=== PATIENT | female | born 1970 | race Caucasian/White ===

== ENCOUNTER → 2023-09-12 | Outpatient (CLI) | payer OTHER ==
[2023-09-12 14:09] LABS: Bun/Creatinine Ratio 14.1 (12.0-20.0); Calcium, Blood 9.7 mg/dL (8.5-10.1); Creatinine, Blood 0.92 mg/dL (0.40-1.00); Potassium, Blood 3.6 mmol/L (3.5-5.5)
[2023-09-12 14:58] LABS: International Normalized Ratio 0.93; Prothrombin Time Results 9.8 Sec (9.7-11.5)
== END ==
LOC: LAB 14:00 → LAB SHORT 14:00
PROVIDERS: Family Medicine
DX: Z51.81 Encounter for therapeutic drug level monitoring (principal); Z79.01 Long term (current) use of anticoagulants
CPT/HCPCS: 80048; 85610

== ENCOUNTER 2024-05-07 17:22 | Emergency (ER) | payer OTHER ==
[~2024-05-07] VITALS: Ht 167.6 cm; Wt 110.2 kg
[~2024-05-07 17:22] MED LIST: ALBU2.5V5; Bentyl10 MG PO; CARAFATE1 GM PO; CEPH500 PO; Cyclobenzaprine5 MG; DOXY100 PO; METO25ER PO; MONT10T; NITR.4SL SL; ONDA4 PO; POTCHL20ER PO; Prinivil10 MG PO; SERT20L PO; WARF10 PO; WARF7.5 PO
[2024-05-07 18:18] LABS: Source, Urine Clean Catch
[2024-05-07 18:21] LABS: BASOPHILS ABSOLUTE AUTO 0.04 K/mm3 (0.00-0.23); BASOPHILS PERCENT AUTO 0 % (0-2); EOSINOPHILS ABSOLUTE AUTO 0.27 K/mm3 (0.00-0.68); EOSINOPHILS PERCENT AUTO 2 % (0-6); Hematocrit 45.2 % (33.0-51.0); Hemoglobin 15.4 g/dL (11.5-16.0); IMMATURE GRAN ABSOLUTE AUTO 0.06 K/mm3 (0.00-0.10); IMMATURE GRAN PERCENT AUTO 1 % (0-1); LYMPHOCYTES ABSOLUTE AUTO 2.24 K/mm3 (0.84-5.20); LYMPHOCYTES PERCENT AUTO 20 % (21-46); MONOCYTES PERCENT AUTO 7 % (4-13); Mean Corpuscular HGB 30.9 pg (26.0-34.0); Mean Corpuscular HGB Conc 34.1 g/dL (31.5-36.5); Mean Corpuscular Volume 91 fL (80-100); Mean Platelet Volume 10.3 fL (9.1-12.4); NEUTROPHILS ABSOLUTE AUTO 7.81 K/mm3 (1.96-9.15); NEUTROPHILS PERCENT AUTO 70 % (41-73); Platelet Count 338 K/mm3 (150-400); RDW Coefficient Variation 13.9 % (11.7-14.2); RDW Standard Deviation 46.5 fL (35.1-46.3); Red Blood Cell Count 4.98 M/mm3 (3.80-5.20); White Blood Cell Count 11.22 K/mm3 (4.00-11.30)
[2024-05-07 18:23] LABS: Appearance, Urine Clear (Clear); Bilirubin, Urine Neg (Neg); Blood, Urine 5+ (Neg); Color, Urine Yellow (P-Yellow); Glucose Qualitative, Urine Neg (Neg); Ketones, Urine 1+ (Neg); Leukocyte Esterase, Urine Neg (Neg); Nitrite, Urine Neg (Neg); Protein, Urine 2+ (Neg); Specific Gravity, Urine 1.015 (1.003-1.022); Urobilinogen, Urine NORM (Normal)
[2024-05-07 18:29] LABS: Bacteria Few /hpf; Red Blood Cells, Urine 50-100 /hpf (0-2); Squamous Epithelial Cells Few /hpf (Few)
[2024-05-07 18:45] VITALS: BP 135/105
[2024-05-07 18:46] LABS: Albumin, Blood 3.3 g/dL (3.4-5.0); Albumin/Globulin Ratio 0.8 (0.8-1.8); Bilirubin, Total 0.5 mg/dL (0.1-1.0); Calcium, Blood 8.7 mg/dL (8.5-10.1); Creatinine, Blood 0.9 mg/dL (0.40-1.00); Globulin, Blood 3.9 g/dL (2.2-4.0); Potassium, Blood 3.6 mmol/L (3.5-5.5); Total Protein, Blood 7.2 g/dL (6.4-8.2)
[2024-05-07 21:36] LABS: International Normalized Ratio 3.84; Prothrombin Time Results 37.2 Sec (9.7-11.5)
[2024-05-07] MEDS ORDERED: OXYB5 PO (22:01)
[2024-05-07] MEDS ORDERED: PHENA200 PO (22:01)
[2024-05-07] MEDS ORDERED: oxyBUTYnin chloride 5 MG TAB PO ONE (22:15)
== END 2024-05-07 22:27 | disposition home or self-care (01) ==
LOC: ER 17:22
PROVIDERS: Emergency Medicine; Physician Assistant
DX: N30.91 Cystitis, unspecified with hematuria (principal); Z79.01 Long term (current) use of anticoagulants; Z79.899 Other long term (current) drug therapy
CPT/HCPCS: 80053; 81001; 85025; 85610; 99284; A9270

== ENCOUNTER 2024-05-16 11:11 | Emergency (ER) | payer OTHER ==
[~2024-05-16] VITALS: Ht 167.6 cm; Wt 106.6 kg
[~2024-05-16 11:11] MED LIST changes: +OXYB5 PO; +PHENA200 PO
[2024-05-16 11:34] VITALS: BP 151/111
[2024-05-16 12:10] LABS: BASOPHILS ABSOLUTE AUTO 0.06 K/mm3 (0.00-0.23); BASOPHILS PERCENT AUTO 1 % (0-2); EOSINOPHILS ABSOLUTE AUTO 0.22 K/mm3 (0.00-0.68); EOSINOPHILS PERCENT AUTO 2 % (0-6); Hematocrit 47.9 % (33.0-51.0); Hemoglobin 16.3 g/dL (11.5-16.0); IMMATURE GRAN ABSOLUTE AUTO 0.06 K/mm3 (0.00-0.10); IMMATURE GRAN PERCENT AUTO 1 % (0-1); LYMPHOCYTES ABSOLUTE AUTO 2.28 K/mm3 (0.84-5.20); LYMPHOCYTES PERCENT AUTO 21 % (21-46); MONOCYTES ABSOLUTE AUTO 0.88 K/mm3 (0.16-1.47); MONOCYTES PERCENT AUTO 8 % (4-13); Mean Corpuscular HGB 31.4 pg (26.0-34.0); Mean Corpuscular Volume 92 fL (80-100); Mean Platelet Volume 10.5 fL (9.1-12.4); NEUTROPHILS ABSOLUTE AUTO 7.54 K/mm3 (1.96-9.15); NEUTROPHILS PERCENT AUTO 68 % (41-73); Platelet Count 367 K/mm3 (150-400); RDW Coefficient Variation 13.9 % (11.7-14.2); RDW Standard Deviation 46.9 fL (35.1-46.3); Red Blood Cell Count 5.19 M/mm3 (3.80-5.20); White Blood Cell Count 11.04 K/mm3 (4.00-11.30)
[2024-05-16 12:27] LABS: International Normalized Ratio 3.77; Prothrombin Time Results 36.6 Sec (9.7-11.5)
[2024-05-16 12:32] LABS: Albumin, Blood 3.4 g/dL (3.4-5.0); Albumin/Globulin Ratio 0.8 (0.8-1.8); Bilirubin, Total 0.3 mg/dL (0.1-1.0); Bun/Creatinine Ratio 8.1 (12.0-20.0); Creatinine, Blood 0.75 mg/dL (0.40-1.00); Globulin, Blood 4.1 g/dL (2.2-4.0); Potassium, Blood 4.1 mmol/L (3.5-5.5); Total Protein, Blood 7.5 g/dL (6.4-8.2)
== END 2024-05-16 15:06 | disposition left against medical advice (07) ==
LOC: ER 11:11
PROVIDERS: Physician Assistant
DX: R10.9 Unspecified abdominal pain (principal); Z53.29 Procedure and treatment not carried out because of patient's decision for other reasons
CPT/HCPCS: 80053; 83690; 85025; 85610; 99281

== ENCOUNTER → 2024-05-18 | Outpatient (CLI) | payer OTHER | END | disposition home or self-care (01) | LOC: LAB SHORT 13:10 → LAB 13:10 | DX: N30.91 Cystitis, unspecified with hematuria (principal) | CPT/HCPCS: 87086 ==

== ENCOUNTER 2024-09-04 07:31 | Day surgery (SDC) | payer OTHER ==
[~2024-09-04] VITALS: Ht 165.1 cm; Wt 108.8 kg
[~2024-09-04 07:31] MED LIST changes: +NS 500 ML IV SCH
[2024-09-04] MEDS ORDERED: SUCR1 (08:47)
[2024-09-04] MEDS ORDERED: FURO20 PO (08:49)
[2024-09-04 08:56] VITALS: BP 143/73
[2024-09-04] MEDS ORDERED: NS 500 ML IV SCH (09:00)
[2024-09-04] MEDS ORDERED: propofoL 40 ML IV ONE (09:29)
--- NOTE | 2024-09-04 09:39 | NUR ---
09/04/24 0939 Joe Lopez History, Chart, Medications and Allergies reviewed before start of procedure.MONITOR INTACT WITH CONTINUOUS PULSE OXIMETRY, CONTINUOUS END TITAL CO2, AND INTERMITTENT BLOOD PRESSURE.3-LEAD EKG REVIEWED WITH PHYSICIAN PRIOR TO START OF PROCEDURE.O2 VIA POM INTACT THROUGHOUT SEDATION/PROCEDURE.See Anesthesia record.
[2024-09-04] MEDS ORDERED: propofoL 20 ML IV ONE (09:47)
[2024-09-04 10:03] VITALS: BP 127/116
[2024-09-04 10:08] VITALS: BP 140/106
--- NOTE | 2024-09-04 10:23 | NUR ---
Discharge instructions reviewed with patient. Patient verbalizes understanding. Copy given to patient to take home. Patient States Post-Procedure ride home has been arranged. Discharged via wheelchair to private car for ride home.
== END 2024-09-04 10:23 | disposition home or self-care (01) ==
LOC: ORSCMMR 07:31
PROVIDERS: Internal Medicine Gastroenterology
PROC: 0DBN8ZX Excision of Sigmoid Colon, Via Natural or Artificial Opening Endoscopic, Diagnostic (ICD-10-PCS; principal; 2024-09-04 07:30)
PROC: 0DBM8ZX Excision of Descending Colon, Via Natural or Artificial Opening Endoscopic, Diagnostic (ICD-10-PCS; principal; 2024-09-04 07:30)
DX: K62.5 Hemorrhage of anus and rectum (principal); K57.30 Diverticulosis of large intestine without perforation or abscess without bleeding; M62.89 Other specified disorders of muscle; I10 Essential (primary) hypertension; I26.99 Other pulmonary embolism without acute cor pulmonale; F41.9 Anxiety disorder, unspecified; G47.30 Sleep apnea, unspecified; F32.A Depression, unspecified; E66.9 Obesity, unspecified; Z68.39 Body mass index [BMI] 39.0-39.9, adult; Z80.0 Family history of malignant neoplasm of digestive organs; F17.210 Nicotine dependence, cigarettes, uncomplicated; Z79.01 Long term (current) use of anticoagulants; Z79.899 Other long term (current) drug therapy
CPT/HCPCS: 88305; J2704; J7040

== ENCOUNTER → 2024-10-14 | Outpatient (CLI) | payer OTHER ==
[~2024-10-14] MED LIST changes: +FURO20 PO; -NS 500 ML IV SCH; +SUCR1
== END | disposition home or self-care (01) ==
LOC: LAB 10:00 → LAB SHORT 10:00
DX: D75.1 Secondary polycythemia (principal); R19.7 Diarrhea, unspecified; Z86.711 Personal history of pulmonary embolism
CPT/HCPCS: 87015; 87045; 87046; 87205; 87899

== ENCOUNTER → 2024-10-15 | Outpatient (CLI) | payer OTHER ==
[2024-10-15 19:34] LABS: Protein, Urine Quantitative 5.9 mg/dL (0.0-11.9)
[2024-10-15 19:51] LABS: Microalb/Creat Ratio UR, Rand Unable to Calculate mg/g (0.000-30.000); Microalbumin, Random Urine <5.000 mg/L (0.000-20.000)
== END | disposition home or self-care (01) ==
LOC: LAB SHORT 10:00 → LAB 10:00
PROVIDERS: Internal Medicine Nephrology
DX: N18.2 Chronic kidney disease, stage 2 (mild) (principal); D63.1 Anemia in chronic kidney disease; N25.81 Secondary hyperparathyroidism of renal origin; E55.9 Vitamin D deficiency, unspecified; E78.00 Pure hypercholesterolemia, unspecified; R76.9 Abnormal immunological finding in serum, unspecified; R94.5 Abnormal results of liver function studies; R94.6 Abnormal results of thyroid function studies; G60.9 Hereditary and idiopathic neuropathy, unspecified; D51.8 Other vitamin B12 deficiency anemias; D52.8 Other folate deficiency anemias; D50.9 Iron deficiency anemia, unspecified
CPT/HCPCS: 81050; 82043; 82570; 84156

== ENCOUNTER 2025-02-27 11:02 | Day surgery (SDC) | payer OTHER ==
[~2025-02-27] VITALS: Ht 167.6 cm; Wt 114.5 kg
[~2025-02-27 11:02] MED LIST changes: +EPINEPhrine HCl 1 MG / ML 30ML Vial ONE; +Lactated Ringer's 1,000 ML IV ONE; +Lidocaine HCl 2% 10 ML SDA ONE
[2025-02-27] MEDS ORDERED: ENOX100I SC (12:38)
[2025-02-27] MEDS ORDERED: MELO7.5 PO (12:38)
[2025-02-27] MEDS ORDERED: TAMS.4ER PO (12:39)
[2025-02-27] MEDS ORDERED: ALBU90OI INH (12:40)
[2025-02-27] MEDS ORDERED: VITAMIN D5000 UNIT PO (12:41)
[2025-02-27] MEDS ORDERED: FLUTICASONE PRO16 GM (12:41)
[2025-02-27] MEDS ORDERED: STIOLTO RESPIMAT4 G1 IH (12:42)
[2025-02-27] MEDS ORDERED: TRELEGY ELLIPT1 EACH IH (12:42)
[2025-02-27] MEDS ORDERED: ATORVASTATIN CA20 MG PO (12:43)
[2025-02-27] MEDS ORDERED: TOPI50 PO (12:43)
[2025-02-27] MEDS ORDERED: LIDOCAINE1 EACH TOP (12:43)
[2025-02-27] MEDS ORDERED: Lactated Ringer's 1,000 ML IV ONE (13:03)
[2025-02-27] MEDS ORDERED: Tranexamic Acid 100 ML IV ONE (13:15)
[2025-02-27] MEDS ORDERED: propofoL 20 ML IV ONE ×2 (14:35→15:21)
[2025-02-27] MEDS ORDERED: FentaNYL Citrate 50 MCG/ML 2 ML Injection ONE ×2 (14:36→15:50)
[2025-02-27] MEDS ORDERED: Sugammadex Sodium 200 MG/2ML SDV (100 MG/ML) ONE (14:36)
[2025-02-27] MEDS ORDERED: Dexamethasone Sod Phos 10 MG/ML 1ML VIAL ONE (14:37)
[2025-02-27] MEDS ORDERED: Ondansetron HCl 2 MG / ML 2ML Vial ONE ×2 (14:37→17:34)
[2025-02-27] MEDS ORDERED: Midazolam HCl 1MG / ML 2ML Vial ONE (15:20)
[2025-02-27] MEDS ORDERED: Rocuronium Bromide 10 MG/ML 5ML Injection IV ONE (15:28)
--- NOTE | 2025-02-27 15:53 | NUR ---
02/27/25 1553 Cooper Strickland ALL 30MLS OF EPI ADDED TO FIELD TO [facility] FOR CASE.
--- NOTE | 2025-02-27 16:49 | NUR ---
02/27/25 1649 Kathy Vasquez DC'D AT 1646. PT NOW HAS O2 SATS OF 95% ON ROOM AIR.
[2025-02-27] MEDS ORDERED: OxyCODONE HCL 5 MG TAB ONE (17:10)
--- NOTE | 2025-02-27 17:18 | NUR ---
02/27/25 1718 Kathy Vasquez PT IS IN RECLINER WITH LEGS ELEVATED. PT TOLERATING PO FLUIDS AND CRACKERS WELL; DENIES NAUSEA. VSS, HYPERTENSION NEAR BASELINE IN PRE OP. FRIEND JJ AT CHAIRSIDE. PT COMPLAINED OF 8/10 PAIN. RN ADMINISTERED PO PAIN MEDS ORDERED BY DR MCCOY AT 1718
[2025-02-27] MEDS ORDERED: Labetalol HCL 5 MG/ML 20MLVIAL ONE (18:00)
[2025-02-27] MEDS ORDERED: HydrALAZINE HCl 20 MG / ML 1ML Vial ONE (18:40)
[2025-02-27 19:01] VITALS: BP 181/106
== END 2025-02-27 15:45 | disposition home or self-care (01) ==
LOC: ORSCSDS 11:02
PROVIDERS: Otolaryngology
PROC: 09SL0ZZ Reposition Nasal Turbinate, Open Approach (ICD-10-PCS; principal; 2025-02-27 13:30)
PROC: 09BM0ZZ Excision of Nasal Septum, Open Approach (ICD-10-PCS; principal; 2025-02-27 13:30)
DX: J34.2 Deviated nasal septum (principal); J34.3 Hypertrophy of nasal turbinates; I10 Essential (primary) hypertension; J44.89 Other specified chronic obstructive pulmonary disease; Z87.891 Personal history of nicotine dependence; K21.9 Gastro-esophageal reflux disease without esophagitis; Z86.718 Personal history of other venous thrombosis and embolism; Z79.01 Long term (current) use of anticoagulants; E66.01 Morbid (severe) obesity due to excess calories; Z68.41 Body mass index [BMI] 40.0-44.9, adult; Z79.899 Other long term (current) drug therapy
CPT/HCPCS: A9270; J0171; J0360; J1100; J2003; J2250; J2405; J2704; J3010; J7120

== ENCOUNTER → 2025-04-03 | Outpatient (CLI) | payer OTHER | LOC: LAB SHORT 06:00 → LAB 06:00 → LAB FUT 04-02 12:00 | DX: N18.2 Chronic kidney disease, stage 2 (mild) (principal); R76.9 Abnormal immunological finding in serum, unspecified; R94.5 Abnormal results of liver function studies; R94.6 Abnormal results of thyroid function studies; D51.8 Other vitamin B12 deficiency anemias; D52.8 Other folate deficiency anemias; D50.9 Iron deficiency anemia, unspecified; D63.1 Anemia in chronic kidney disease ==